=== PATIENT | female | born 1965 | race Hispanic/Latino ===

== ENCOUNTER 2024-09-07 18:54 | Emergency (ER) | payer SELFPAY ==
--- OUTSIDE RECORDS SUMMARY | 2024-09-07 18:57 | XMS REPORT | Continuity of Care Document ---
Author Name Unknown Address [address] [facility] [address] [place] [address] [facility] Address [address] [facility] [address] [place] [address] Care Team Providers Care Driver/Merchandiser Name Role Phone TAVO QUESADA Attending Clinician Unavailable TRICIA OSBORN Attending Clinician Unavailable LAB90 Attending Clinician Unavailable NUPUR POLANCO Attending Clinician Unavailable OMAR SANDS Attending Clinician Unavailable Payers Payer Name Policy Type Policy Number Effective Date Expirati on Date Source AETNA [facility] 94 [place] 9 [id number] 2023 00:00:00 AETNA [facility] 2 [id number] 2022 00:00:00 Social History Social Habit Start Date Stop Date Quantity Comments Source Gender identity Mahi Quintero - External Sexual orientation Bhavna Quintero - External Alcohol intake 2022-12-13 00:00:00 2022-12-13 00:00:00 Current drinker of alcohol (finding) Pema Quintero - External History of Social function 2022-10-21 00:00:00 2022-10-21 00:00:00 Pema Quintero - External Alcohol Comment 2022-10-21 00:00:00 2022-10-21 00:00:00 social Pema Quintero - External Sex Assigned At 1965 00:00:00 1965 00[birth year]:00 Pema Quintero - External Smoking Status Start Date Stop Date Source Never smoked tobacco Pema Quintero - External Medications Ordered Medication Name Filled Medication Name Start Date Stop Date Current Medication? Ordering Clinician Indication Dosage Frequency Signature (SIG) Comments Components Source Bilateral Injection: Methylpredn isolone Acetate (Depo-Medro l) 40 mg/ml, 40mg - Physician Veronica brown ([id number]) 12-13 21:30: 00 12-13 22:36 :00 No [id number] 40mg Pema wynne Gabapentin 100 MG oral Capsule 12-01 00:00: 00 Yes [id number] 100mg Take 1 capsule (100 mg total) by mouth 3 times daily Pema wynne Acetaminoph en-Codeine 300-30 MG oral Tablet 12-01 00:00: 00 Yes [id number] 1{tbl} Q4H Take 1 tablet by mouth every 4 hours as needed for pain Peam wynne methylPREDN ISolone 4 MG oral Tablet Therapy Pack 12-01 00:00: 00 Yes [id number] 1{severo} Take 1 severo by mouth See Admin Instructio ns Use as directed Pema wynne Diclofenac Sodium 75 MG oral Tablet Delayed Response 10-25 00:00: 00 Yes [id number] 75mg Take 1 tablet (75 mg total) by mouth 2 times daily Pema wynne Dexamethaso ne 2 MG oral Tablet 10-25 00:00: 00 12-01 00:00 :00 No [id number] 4mg Take 2 tablets (4 mg total) by mouth daily (with breakfast) Pema wynne Celecoxib (CeleBREX) 200 MG oral Capsule 10-21 00:00: 00 Yes [id number] 200mg Take 1 capsule (200 mg total) by mouth 2 times daily Pema wynne Vital Signs Vital Name Observation Time Observation Value Comments S kristin Body height 2022-12-13 19:56:00 154.9 cm Mahi ey Seybold - External Body weight 2022-12-13 19:56:00 72.576 kg Mahi ey Seybold - External BMI 2022-12-13 19:56:00 30.23 kg/m2 Mahi ey Seybold - External Systolic blood pressure 2022-12-01 21:09:00 124 mm[Hg] Pema Seybo ld - External Diastolic blood pressure 2022-12-01 21:09:00 62 mm[Hg] Pema Seybo ld - External Heart rate 2022-12-01 21:09:00 88 /min Kelse y Seybold - External Body temperature 2022-12-01 21:09:00 36.61 Maame Pema Seybold - External Respiratory rate 2022-12-01 21:09:00 15 /min Pema Seybold - External Body height 2022-12-01 21:09:00 154.9 cm Mahi ey Seybold - External Body weight 2022-12-01 21:09:00 72.757 kg Mahi ey Seybold - External BMI 2022-12-01 21:09:00 30.31 kg/m2 Mahi ey Seybold - External Oxygen saturation in Arterial blood by Pulse oximetry 2022-12-01 21:09:00 99 /min Pema Seybo ld - External Systolic blood pressure 2022-10-21 20:40:00 102 mm[Hg] Pema Seybo ld - External Diastolic blood pressure 2022-10-21 20:40:00 58 mm[Hg] Pema Hillybo ld - External Heart rate 2022-10-21 20:40:00 74 /min Pedrose y Seybold - External Body temperature 2022-10-21 20:40:00 36.72 Maame Pema Seybold - External Respiratory rate 2022-10-21 20:40:00 14 /min Pema Seybold - External Body height 2022-10-21 20:40:00 154.9 cm Mahi ey Seybold - External Body weight 2022-10-21 20:40:00 71.668 kg Mahi ey Seybold - External BMI 2022-10-21 20:40:00 29.85 kg/m2 Mahi ey Seybold - External Encounters Start Date/Time End Date/Time Encounter Type Admission Type Attending [facility] Care Department Encounter ID Source 2023-05-19 00:00:00 2023-05-19 00:00:00 [id number] 13:00:00 2023-04-08 13:00:00 Outpatient HUNDL, TAVO PEMA ALVAREZ [id number] [facility]23-03-20 00:00:00 2023-03-20 00:00:00 Outpatient HUNDL, TAVO ALVAREZ [id number] [facility] 2022-12-29 00:00:00 2022-12-29 00:00:00 Outpatient HUNDL, TAVO PEMA ALVARE[facility] [id number] [facility] 2022-12-13 14:50:00 2022-12-13 14:50:00 Outpatient IRENA, TRICIA ALVAREZ [id number] [facility] 2022-12-13 13:55:00 2022-12-13 13:55:00 Outpatient PEMA ALVARE[facility] [id number] [facility] 2022-12-13 00:00:00 2022-12-13 00:00:00 Outpatient IRENA, TRICIA ALVAREZ [id number] [facility] 2022-12-13 00:00:00 2022-12-13 00:00:00 Outpatient IRENA, TRICIA ALVAREZ [id number] [facility] 2022-12-01 17:15:00 2022-12-01 17:15:00 Outpatient TATIANNADianna PEMA ALVAREZ [id number] [facility] 2022-12-01 16:30:00 2022-12-01 16:30:00 Outpatient HUNDL, TAVO ALVAREZ [id number] [facility] 2022-11-26 00:00:00 2022-11-26 00:00:00 Outpatient HUNDL, TAVO ALVAREZ [id number] [facility] 2022-11-25 14:30:00 2022-11-25 14:30:00 Outpatient IRENA, TRICIA ALVAREZ [id number] [facility] 2022-10-25 00:00:00 2022-10-25 00:00:00 Outpatient HUNDL, TAVO ALVAREZ [id number] [facility] 2022-10-22 00:00:00 2022-10-22 00:00:00 Outpatient TAVO QUESADA [facility]EMA ALVARE[facility] [id number] [facility] 2022-10-21 16:30:00 2022-10-21 16:30:00 Outpatient TAVO QUESADA [facility] [id number] [facility] 2022-10-07 14:30:00 2022-10-07 14:30:00 Outpatient COLLINNUPUR PEMA ALVAREZ [id number] [facility] 2022-09-30 10:00:00 2022-09-30 10:00:00 Outpatient WICHO, OMAR PEMA ALVAREZ [id number] [facility] Notes Date/Time Note Provider Source 2022-12-13 14:57:31 Formatting of this n ote is different from the original. Chief Complaint Patient presents with Consultation C/o patient is here bilateral wrist pain, present couple of months, no hx of injury, patient stated pain depending on activity pain becoming constant, patient also stated dealing with some numbness in the fingers, occupation housekeeping, tx'd steriod pill and ibuprofen. LATASHA [facility]
[2024-09-07 20:21] LABS: Absolute Lymphocytes (CBC) 1.4 K/uL (0.7-4.9); Absolute Monocytes 1.7 K/uL (0.1-1.3); Absolute Neutrophil 12.3 K/uL (1.8-8.0); Basophils % 0.3 % (0-1.3); Hematocrit 35.2 % (36.0-45.0); Lymphocytes % 8.9 % (15.3-44.8); MCH 30.2 pg (27.0-35.0); MCHC 34.1 g/dL (32.0-36.0); MCV 88.7 fL (80-100); MPV 6.9 fL (7.6-11.3); Monocytes % 10.9 % (3.3-12.3); Neutrophils % 79.9 % (41.7-73.7); Platelets 243 thou/uL (152-406); RBC Red Blood Cell Count 3.97 M/uL (3.86-4.86); Red Cell Distribution Width 13.6 % (12.1-15.2)
[2024-09-07] MEDS ORDERED: KETOROLAC 30 MG/ML INJ ONE (20:25)
[2024-09-07] MEDS ORDERED: NA CHLORIDE 0.9% 1,000 ML ONE ×2 (20:25→22:15)
[2024-09-07 20:29] LABS: Urine Bilirubin NEGATIVE (Negative); Urine Blood 2+ (Negative); Urine Clarity Extremely Turbid (Clear); Urine Color Yellow (Yellow); Urine Culture Reflex Order REFLEXED; Urine Glucose NEGATIVE (Negative); Urine Ketones 1+ (Negative); Urine Microscopic Reflex YN ORDER UMIC; Urine Nitrite NEGATIVE (Negative); Urine Protein 1+ (Negative); Urine RBC >50 /HPF (None Seen); Urine Urobilinogen 1+ (Normal)
[2024-09-07 20:30] LABS: Sqamous Epithelial <5 /HPF (None Seen); Urine Bacteria <20 /HPF (<20); Urine Crystals Unidentified Few /HPF (None Seen); Urine Mucus Slight /HPF (None Seen)
[2024-09-07 20:43] LABS: SARS-CoV-2 Antigen Rapid Res Negative (Negative)
[2024-09-07 20:44] LABS: Albumin 3.3 g/dL (3.4-5.0); Albumin/Globulin Ratio 0.8 (1.1-1.8); Anion Gap 9.6 mEq/L (5.0-15.0); Bilirubin Total 0.7 mg/dL (0.2-1.0); Globulin 4.3 g/dL (2.3-3.5); Potassium 3.6 mEq/L (3.5-5.1); Protein, Total 7.6 g/dL (6.4-8.2)
[2024-09-07] MEDS ORDERED: IBUPROFEN 400 MG TAB ONE ×2 (21:39→21:43)
[2024-09-07] MEDS ORDERED: ACETAMINOPHEN 500 MG TAB ONE (21:43)
[2024-09-07] MEDS ORDERED: CEFTRIAXONE 1000 MG/VIAL ONE (22:08)
--- NOTE | 2024-09-08 00:18 | RAD REPORT ---
PROCEDURE: CT Chest, Abdomen and Pelvis With Intravenous Contrast CLINICAL INDICATION: The patient is 58 years old and is Female; abdominal pain, fever TECHNIQUE: Axial computed tomography images of the chest, abdomen and pelvis with intravenous contrast. Sagitt al and coronal reformatted images were created and reviewed. This CT exam was performed using one or more of the following dose reduction techniques: automated exposure control, adjustment of the m A and/or kV according to patient size, and/or use of iterative reconstruction technique. DLP: 855 mGy*cm COMPARISON: None. FINDINGS: CHEST: LUNGS AND PLEURAL SPACES: Interlobular septal thickening. Dependent subsegmental atelectasis. Bibas ilar scarring. No focal consolidation. No significant effusion. No pneumothorax. HEART: Unremarkable. No cardiomegaly. No significant pericardial effusion. No significant cor onary artery calcifications. ABDOMEN: LIVER: Hepatic steatosis. GALLBLADDER AND BILE DUCTS: Unremarkable. No calcified stones. No ductal dilation. PANCREAS: Unremarkable. No ductal dilation. No mass. SPLEEN: Unremarkable. No splenomegaly. ADRENALS: Unremarkable. No mass. KIDNEYS AND URETERS: Mild left hydronephrosis and proximal hydroureter with enlargement of the left kidney, delayed enhancement pattern as well as urothelial thickening/enhancement and perinephric/periureteral stranding. No obstructive stone. No solid mass. STOMACH AND BOWEL: Unremarkable. No obstruction. No mucosal thickening. PELVIS: APPENDIX: Diffuse thickening of the appendix measuring up to 8 mm, nonspecific. BLADDER: Unremarkable. No mass. REPRODUCTIVE: Unremarkable as visualized. CHEST, ABDOMEN and PELVIS: INTRAPERITONEAL SPACE: Unremarkable. No significant fluid collection. No free air. BONES/JOINTS: Unremarkable. No acute fracture. SOFT TISSUES: Unremarkable. VASCULATURE: Unremarkable. No aortic aneurysm. LYMPH NODES: Unremarkable. No enlarged lymph nodes. IMPRESSION: 1. Mild left hydronephrosis and proximal hydroureter with enlargement of the left kidney, delayed e nhancement pattern as well as urothelial thickening/enhancement and perinephric/periureteral stranding. No obstructive stone. Findings concerning for pyelonephritis. 2. No acute intrathoracic abnormality. 3. Hepatic steatosis. 4. Mild interstitial edema and chronic lung changes. Electronically signed by: Gaurav Jensen DO 09/07/2024 11:54 PM CDT RP 9 Due to temporary technical issues with the PACS/Powerscribe reporting system, reports are being phoebe d by the in-house radiologist without review as a courtesy to ensure prompt reporting the interpreting radiologist is fully responsible for the content of the report. Transcribed Date/Time: 09/08/2024 12:18 AM
--- NOTE | 2024-09-08 00:38 | EDPHYS ---
Physician Documentation [facility] Name: Beata Kim Age: 58 yrs Sex: Female : 1965 Arrival Date: 09/07/2024 Time: 18:54 Bed 9 Private MD: ED Physician Eldon Duvall HPI: 09/07 19:05 This 58 yrs old Female presents to ER via Unassigned with complaints of Flu ms3 Symptoms. 19:05 58-year-old female with no past medical history presents to the emergency department ms3 for fevers and chills that been ongoing for 3 days. Patient endorses headache, nausea, vomiting, diarrhea, dysuria, urinary frequency. Patient denies abdominal pain. Patient states she is taken [place] and Tylenol without relief.. Historical: - Allergies: 19:13 No Known Allergies; dd2 - PMHx: 19:13 None; dd2 - PSHx: 19:13 None; dd2 - Immunization history:: Adult Immunizations up to date. - Infectious Disease History:: Denies. - Social history:: Smoking status: Patient denies any tobacco usage or history of. - Family history:: not pertinent. ROS: 19:05 Cardiovascular: Negative for chest pain, and palpitations. ms3 19:05 MS/Extremity: Negative for injury and deformity, Skin: Negative for injury, rash, and discoloration, 19:05 Constitutional: Positive for body aches, chills, fever, 19:05 Abdomen/GI: Positive for nausea, vomiting, and diarrhea, Negative for abdominal pain, 19:05 : Positive for urinary frequency, burning with urination, 09/08 05:57 All other systems are negative, sp4 Exam: 09/07 19:05 Constitutional: This is a well developed, well nourished patient who is awake, alert, ms3 and in no acute distress. Cardiovascular: Regular rate and rhythm with a normal S1 and S2. No gallops, murmurs, or rubs. Normal PMI, no JVD. No pulse deficits. Respiratory: Lungs have equal breath sounds bilaterally, clear to auscultation and percussion. No rales, rhonchi or wheezes noted. No increased work of breathing, no retractions or nasal flaring. Abdomen/GI: Soft, non-tender, with normal bowel sounds. No distension or tympany. No guarding or rebound. No evidence of tenderness throughout. Skin: Warm, dry with normal turgor. Normal color with no rashes, no lesions, and no evidence of cellulitis. MS/ Extremity: Pulses equal, no cyanosis. Neurovascular intact. Full, normal range of motion. Back: CVA tenderness, that is mild, is noted on the left, 09/08 05:57 Constitutional: This is a well developed, well nourished patient who is awake, alert, sp4 and in no acute distress. Head/Face: Normocephalic, atraumatic. Eyes: Pupils equal round and reactive to light, extra-ocular motions intact. Lids and lashes normal. Conjunctiva and sclera are not injected. Cornea within normal limits. Periorbital areas with no swelling, redness, or edema. ENT: Nares patent. No nasal discharge, no septal abnormalities noted. Tympanic membranes are normal and external auditory canals are clear. Oropharynx with no redness, swelling, or masses, exudates, or evidence of obstruction, uvula midline. Mucous membranes moist. Neck: Trachea midline, no thyromegaly or masses palpated, and no cervical lymphadenopathy. Supple, full range of motion without nuchal rigidity, or vertebral point tenderness. Chest/axilla: Normal chest wall appearance and motion. Nontender with no deformity. No lesions are appreciated. Cardiovascular: Regular rate and rhythm with a normal S1 and S2. No gallops, murmurs, or rubs. Normal PMI, no JVD. No pulse deficits. Respiratory: Lungs have equal breath sounds bilaterally, clear to auscultation and percussion. No rales, rhonchi or wheezes noted. No increased work of breathing, no retractions or nasal flaring. Abdomen/GI: Soft, with normal bowel sounds. No distension or tympany. No guarding or rebound. No evidence of tenderness throughout. Back: No spinal tenderness. No costovertebral tenderness. Skin: Warm, dry with normal turgor. Normal color with no rashes, no lesions, and no evidence of cellulitis. MS/ Extremity: Pulses equal, no cyanosis. Neurovascular intact. Full, normal range of motion. Neuro: Awake and alert, GCS 15, oriented to person, place, time, and situation. Cranial nerves II-XII grossly intact. Motor strength 5/5 in all extremities. Sensory grossly intact. Psych: Awake, alert, with orientation to person, place and time. Behavior, mood, and affect are within normal limits Vital Signs: 09/07 19:11 BP 112 / 75; Pulse 106; Resp 16; Temp 99.3; Pulse Ox 98% ; Weight 72.57 kg; Height 5 dd2 ft. 1 in. ; Pain 7/10; 21:35 BP 107 / 64; Pulse 98; Resp 19 S; Temp 102.1; Pulse Ox 99% on R/A; ha1 22:40 BP 110 / 68; Pulse 94; Resp 16 S; Temp 99.1(O); Pulse Ox 99% on R/A; ha1 23:40 BP 117 / 69; Pulse 91; Resp 18 S; Pulse Ox 99% on R/A; ha1 09/08 01:03 BP 113 / 69; Pulse 91; Resp 18 S; Temp 98.1; Pulse Ox 99% on R/A; ha1 09/07 19:11 Body Mass Index 30.23 (72.57 kg, 154.94 cm) dd2 09/07 19:11 Pain Scale: Adult dd2 [place] Coma Score: 05:57 Eye Response: spontaneous(4). Motor Response: obeys commands(6). Verbal Response: sp4 oriented(5). Total: 15. MDM: 09/07 19:00 Medical Screening Exam initiated ms3 19:05 Differential Diagnosis COVID vs UTI vs Dehydration. ms3 09/08 00:36 ED course: DLP: 855 mGy*cm COMPARISON: None. FINDINGS: CHEST: LUNGS AND PLEURAL SPACES: sp4 Interlobular septal thickening. Dependent subsegmental atelectasis. Bibasilar scarring. No focal consolidation. No significant effusion. No pneumothorax. HEART: Unremarkable. No cardiomegaly. No significant pericardial effusion. No significant coronary artery calcifications. ABDOMEN: LIVER: Hepatic steatosis. GALLBLADDER AND BILE DUCTS: Unremarkable. No calcified stones. No ductal dilation. PANCREAS: Unremarkable. No ductal dilation. No mass. SPLEEN: Unremarkable. No splenomegaly. ADRENALS: Unremarkable. No mass. KIDNEYS AND URETERS: Mild left hydronephrosis and proximal hydroureter with enlargement of the left kidney, delayed enhancement pattern as well as urothelial thickening/enhancement and perinephric/periureteral stranding. No obstructive stone. No solid mass. STOMACH AND BOWEL: Unremarkable. No obstruction. No mucosal thickening. PELVIS: APPENDIX: Diffuse thickening of the appendix measuring up to 8 mm, nonspecific. BLADDER: Unremarkable. No mass. REPRODUCTIVE: Unremarkable as visualized. CHEST, ABDOMEN and PELVIS: INTRAPERITONEAL SPACE: Unremarkable. No significant fluid collection. No free air. BONES/JOINTS: Unremarkable. No acute fracture. SOFT TISSUES: Unremarkable. VASCULATURE: Unremarkable. No aortic aneurysm. LYMPH NODES: Unremarkable. No enlarged lymph nodes. IMPRESSION: 1. Mild left hydronephrosis and proximal hydroureter with enlargement of the left kidney, delayed enhancement pattern as well as urothelial thickening/enhancement and perinephric/periureteral stranding. No obstructive stone. Findings concerning for pyelonephritis. 2. No acute intrathoracic abnormality. 3. Hepatic steatosis. 4. Mild interstitial edema and chronic lung changes. . 05:58 Data reviewed: vital signs, nurses notes, lab test result(s), radiologic studies, CT sp4 scan. Consideration of Admission/Observation Escalation of care including admission/observation considered. ED course: CT reveals signs of left-sided pyelonephritis. Patient will be treated with cephalexin for the next 10 days.. 09/07 19:09 Order name: CBC with Diff; Complete Time: 21:40 ms3 09/07 19:09 Order name: CMP; Complete Time: 21:40 ms3 09/07 19:09 Order name: SARS RAPID; Complete Time: 21:40 ms3 09/07 19:09 Order name: UA Rfx Arnoldo Cult if indicated; Complete Time: 21:40 ms3 09/07 20:59 Order name: Urine Culture EDME 09/07 22:13 Order name: CT Chest, Abdomen, Pelvis - W/Contrast sp4 Administered Medications: 09/07 20:31 Drug: NS 0.9% IV 1000 ml IV at 1000 ml once; to be given as a bolus over 60 minutes cp4 Route: IV; Rate: 1000 ml; Site: right antecubital; 22:35 Follow up: Response: No adverse reaction; IV Status: Completed infusion ha1 20:31 Drug: Ketorolac IVP 10 mg 10 mg IVP once Route: IVP; Site: right antecubital; cp4 21:00 Follow up: Response: No adverse reaction; Marked relief of symptoms; Pain is decreased ha1 21:40 Drug: Acetaminophen PO 1000 mg PO once Route: PO; ha1 22:40 Follow up: Response: No adverse reaction; Temperature is decreased ha1 21:40 Drug: Ibuprofen PO 800 mg PO once Route: PO; ha1 22:40 Follow up: Response: No adverse reaction; Marked relief of symptoms; Temperature is ha1 decreased 22:16 Drug: Rocephin - Rocephin (cefTRIAXone) IVPB 1 grams IVPB once over 30 mins; (mix in 50 ha1 mL NS) Route: IVPB; Infused Over: 30 mins; Site: right antecubital; 22:35 Follow up: Response: No adverse reaction; IV Status: Completed infusion ha1 22:25 Drug: NS 0.9% IV 1000 ml IV at 1 bolus Per protocol; to be given as a bolus over 60 ha1 minutes Route: IV; Rate: 1 bolus; Site: right antecubital; Disposition: 09/08 05:59 Chart complete. sp4 Disposition Summary: 09/08/24 00:37 Discharge Ordered Notes: Location: Home sp4 Problem: new sp4 Symptoms: have improved sp4 Condition: Stable sp4 Diagnosis - Pyelonephritis acute sp4 - Acute febrile illness sp4 Followup: sp4 - With: Private Physician - When: 7 - 10 days - Reason: Recheck today's complaints Discharge Instructions: - Discharge Summary Sheet sp4 - Pyelonephritis, Adult, [id number] sp4 Forms: - Work release form sp4 - Patient Portal Instructions sp4 Prescriptions: - Cephalexin 500 mg Oral Capsule - take 1 capsule ORAL route every 12 hours for 10 days; 20 capsule; Refills: 0, sp4 Product Selection Permitted - Ibuprofen 800 mg Oral Tablet - take 1 tablet ORAL route every 8 hours As needed take with food; 30 tablet; sp4 Refills: 0, Product Selection Permitted - ondansetron 8 mg Oral Tablet,disintegrating - take 1 tablet ORAL route every 8 hours PRN nausea; 30 tablet; Refills: 0, sp4 Product Selection Permitted Signatures: Dispatcher [employer] EDMoustapha Burdick DO DO ms3 Sanjuana Muller RN RN ha1 Eldon Duvall MD MD sp4 Crystal Trejo 4 CHEIKH CASTILLO RN RN dd2 Corrections: (The following items were deleted from the chart) 09/07 18: 19:09 CBC+H.LAB.BRZ ordered. EDMS EDMS 19:09 COMPREHENSIVE METABOLIC PANEL+C.LAB.BRZ ordered. EDMS EDMS 19: SARS-COV-2 Antigen Rapid+I.LAB.BRZ ordered. EDMS EDMS 19: UA Rfx Arnoldo Cult if indicated+U.LAB.BRZ ordered. EDMS EDMS
--- NOTE | 2024-09-08 00:38 | ER ---
Nurse's Notes [facility] Name: Beata Kim Age: 58 yrs Sex: Female : 1965 Arrival Date: 09/07/2024 Time: 18:54 Bed 9 Private MD: Diagnosis: Pyelonephritis acute;Acute febrile illness Presentation: 09/07 19:11 Chief complaint: Patient states: FEVER AND CHILLS, PAIN TO RT SIDE OF HEAD, LOWER BACK dd2 PAIN, NAUSEA AND HOT URINE. X3 DAYS. Coronavirus screen: At this time, the client does not indicate any symptoms associated with coronavirus-19. Ebola Screen: No symptoms or risks identified at this time. Initial Sepsis Screen: Does the patient meet any 2 criteria? No. Patient's initial sepsis screen is negative. Does the patient have a suspected source of infection? No. Patient's initial sepsis screen is negative. Risk Assessment: Do you want to hurt yourself or someone else? Patient reports no desire to harm self or others. Onset of symptoms was September 04, 2024. 19:11 Method Of Arrival: Ambulatory dd2 19:11 Acuity: LILY 3 dd2 Triage Assessment: 19:13 General: Appears in no apparent distress. uncomfortable, Behavior is calm, cooperative, dd2 appropriate for age. Pain: Complains of pain in forehead, right catholic and low back area. Historical: - Allergies: 19:13 No Known Allergies; dd2 - PMHx: 19:13 None; dd2 - PSHx: 19:13 None; dd2 - Immunization history:: Adult Immunizations up to date. - Infectious Disease History:: Denies. - Social history:: Smoking status: Patient denies any tobacco usage or history of. - Family history:: not pertinent. Screenin:18 [facility] ED Fall Risk Assessment (Adult) History of falling in the last 3 months, cp4 including since admission No falls in past 3 months (0 pts) Confusion or Disorientation No (0 pts) Intoxicated or Sedated No (0 pts) Impaired Gait No (0 pts) Mobility Assist Device Used No (0 pt) Altered Elimination No (0 pt) Score/Fall Risk Level 0 - 2 = Low Risk Oriented to surroundings, Maintained a safe environment, Assessed \\T\\ reinforced patient's understanding of fall precautions, Hourly rounding (assess needs \\T\\ fall precautionary measures) done. Abuse screen: Denies threats or abuse. Denies injuries from another. Nutritional screening: No deficits noted. Tuberculosis screening: No symptoms or risk factors identified. Never had TB. Assessment: 20:18 General: Appears in no apparent distress. uncomfortable, Behavior is calm, cooperative, cp4 appropriate for age. Pain: Complains of pain in back and face and low back area and right catholic and forehead Pain does not radiate. Neuro: Level of Consciousness is awake, alert, obeys commands, Oriented to person, place, time, situation. Cardiovascular: Patient's skin is warm and dry. Respiratory: Airway is patent Respiratory effort is even, unlabored. GI: Abdomen is round non-distended, Bowel sounds present X 4 quads. Abd is soft and non tender X 4 quads. Reports nausea. : Reports "hot urine". EENT: No signs and/or symptoms were reported regarding the EENT system. Derm: No signs and/or symptoms reported regarding the dermatologic system. Musculoskeletal: No signs and/or symptoms reported regarding the musculoskeletal system. 21:35 Reassessment: Patient and/or family updated on plan of care and expected duration. Pain ha1 level reassessed. Patient is alert, oriented x 3, equal unlabored respirations, skin warm/dry/pink. PATIENT REPORTS FEELING COLD. TEMPERATURE AT 102.[address] DUVALL. 22:10 Reassessment: Patient and/or family updated on plan of care and expected duration. Pain ha1 level reassessed. Patient is alert, oriented x 3, equal unlabored respirations, skin warm/dry/pink. 23:20 Reassessment: Patient and/or family updated on plan of care and expected duration. Pain ha1 level reassessed. Patient is alert, oriented x 3, equal unlabored respirations, skin warm/dry/pink. 09/08 01:03 Reassessment: Patient and/or family updated on plan of care and expected duration. Pain ha1 level reassessed. Patient is alert, oriented x 3, equal unlabored respirations, skin warm/dry/pink. Patient states feeling better. Patient states symptoms have improved. Vital Signs: 09/07 19:11 BP 112 / 75; Pulse 106; Resp 16; Temp 99.3; Pulse Ox 98% ; Weight 72.57 kg; Height 5 dd2 ft. 1 in. ; Pain 7/10; 21:35 BP 107 / 64; Pulse 98; Resp 19 S; Temp 102.1; Pulse Ox 99% on R/A; ha1 22:40 BP 110 / 68; Pulse 94; Resp 16 S; Temp 99.1(O); Pulse Ox 99% on R/A; ha1 23:40 BP 117 / 69; Pulse 91; Resp 18 S; Pulse Ox 99% on R/A; ha1 09/08 01:03 BP 113 / 69; Pulse 91; Resp 18 S; Temp 98.1; Pulse Ox 99% on R/A; ha1 09/07 19:11 Body Mass Index 30.23 (72.57 kg, 154.94 cm) dd2 09/07 19:11 Pain Scale: Adult dd2 Leeds Coma Score: 05:57 Eye Response: spontaneous(4). Motor Response: obeys commands(6). Verbal Response: sp4 oriented(5). Total: 15. ED Course: 09/07 18:57 Patient arrived in ED. im 18:59 Renea Barker PA-C is PHCP. sb4 18:59 Moustapha Landa DO is Attending Physician. sb4 19:13 Triage completed. dd2 19:13 Arm band placed on right wrist. dd2 20:06 Crystal Trejo is Primary Nurse. cp4 20:06 Attending Physician role handed off by Moustapha Landa DO sp4 20:06 Eldon Duvall MD is Attending Physician. sp4 20:17 No provider procedures requiring assistance completed. Inserted saline lock: 22 gauge cp4 in right antecubital area, using aseptic technique. Blood collected. Flushed with 10 mL NS. 20:18 Bed in low position. Call light in reach. Side rails up X 1. cp4 23:12 CT Chest, Abdomen, Pelvis - W/Contrast In Process Unspecified. EDMS 09/08 01:07 Provided Education on: FOLLOW UPS . ha1 01:07 IV discontinued, intact, bleeding controlled, No redness/swelling at site. Pressure ha1 dressing applied. Administered Medications: 09/07 20:31 Drug: NS 0.9% IV 1000 ml IV at 1000 ml once; to be given as a bolus over 60 minutes cp4 Route: IV; Rate: 1000 ml; Site: right antecubital; 22:35 Follow up: Response: No adverse reaction; IV Status: Completed infusion ha1 20:31 Drug: Ketorolac IVP 10 mg 10 mg IVP once Route: IVP; Site: right antecubital; cp4 21:00 Follow up: Response: No adverse reaction; Marked relief of symptoms; Pain is decreased ha1 21:40 Drug: Acetaminophen PO 1000 mg PO once Route: PO; ha1 22:40 Follow up: Response: No adverse reaction; Temperature is decreased ha1 21:40 Drug: Ibuprofen PO 800 mg PO once Route: PO; ha1 22:40 Follow up: Response: No adverse reaction; Marked relief of symptoms; Temperature is ha1 decreased 22:16 Drug: Rocephin - Rocephin (cefTRIAXone) IVPB 1 grams IVPB once over 30 mins; (mix in 50 ha1 mL NS) Route: IVPB; Infused Over: 30 mins; Site: right antecubital; 22:35 Follow up: Response: No adverse reaction; IV Status: Completed infusion ha1 22:25 Drug: NS 0.9% IV 1000 ml IV at 1 bolus Per protocol; to be given as a bolus over 60 ha1 minutes Route: IV; Rate: 1 bolus; Site: right antecubital; Medication: 20:18 VIS not applicable for this client. cp4 Outcome: 09/08 00:37 Discharge ordered by . sp4 01:05 Discharged to home ambulatory, with family, ha1 01:05 Condition: stable 01:05 Discharge instructions given to patient, Instructed on discharge instructions, follow up and referral plans. medication usage, Demonstrated understanding of instructions, follow-up care, medications, Prescriptions given X 3, 01:08 Patient left the ED. ha1 Signatures: Dispatcher [employer] EDMS Sanjuana Muller RN RN ha1 Renea Barker, PAJaylanC PAJaylanC [email or web address] Eldon Duvall MD MD sp4 Greta Bolden Christina cp4 CHEIKH CASTILLO RN RN dd2
[2024-09-08 01:41] VITALS: O2SAT 99
[2024-09-08 01:45] VITALS: BP 113/69; TEMP 98.1
== END 2024-09-08 01:08 | disposition home or self-care (01) ==
LOC: ER 18:54
DX: N10 Acute pyelonephritis (principal); Z11.52 Encounter for screening for COVID-19
CPT/HCPCS: 36415; 71260; 74177; 80053; 81001; 85025; 87086; 87088; 87426; 96361; 96365; 96375; 99284; J0696; J7030; Q9967

== ENCOUNTER 2024-09-08 17:12 | Emergency (ER) | payer SELFPAY ==
--- OUTSIDE RECORDS SUMMARY | 2024-09-08 17:14 | XMS REPORT | Continuity of Care Document ---
Author Name Unknown Address [address] [place] [address] [facility] Address [address] [place] [address] Care Team Providers Care Configuration Consultant Name Role Phone TAVO QUESADA Attending Clinician Unavailable TRICIA OSBORN Attending Clinician Unavailable LAB90 Attending Clinician Unavailable NUPUR POLANCO Attending Clinician Unavailable OMAR SANDS Attending Clinician Unavailable Payers Payer Name Policy Type Policy Number Effective Date Expirati on Date Source AETNA [facility] 94 ON 9 [id number] 2023 00:00:00 AETNA [facility] [id number] 2022 00:00:00 Social History Social Habit Start [...] 12-13 21:30: 00 12-13 22:36 :00 No [id number] 40mg Pema wynne Gabapentin 100 MG oral Capsule 12-01 00:00: 00 Yes [id number] 450000 100mg Take 1 capsule (100 mg total) by mouth 3 times daily Pema wynne Acetaminoph en-Codeine 300-30 MG oral Tablet 12-01 00:00: 00 Yes [id number] 1{tbl} Q4H Take 1 tablet by mouth every 4 hours as needed for pain Pema wynne methylPREDN ISolone 4 MG oral Tablet Therapy Pack 12-01 00:00: 00 Yes [id number] 1{severo} Take 1 severo by mouth See Admin Instructio ns Use as directed Pema wynne Diclofenac Sodium 75 MG oral Tablet Delayed Response 10-25 00:00: 00 Yes [id number] 75mg Take 1 tablet (75 mg total) by mouth 2 times daily Pema wynne Dexamethaso ne 2 MG oral Tablet 10-25 00:00: 00 12-01 00:00 :00 No [id number] 4mg Take 2 tablets (4 mg total) by mouth daily (with breakfast) Pema wynne Celecoxib (CeleBREX) 200 MG oral Capsule 10-21 00:00: 00 Yes [id number] 200mg Take 1 capsule (200 mg total) [...] blood pressure 2022-10-21 20:40:00 58 mm[Hg] Pema Seybo ld - External Heart rate 2022-10-21 20:40:00 [...] End Date/Time Encounter Type Admission Type Attending [facility] Care Department Encounter ID Source 2023-05-19 00:00:00 2023-05-19 00:00:00 Outpatient TAVO QUESADA [id number] Pema Quintero 2023-04-08 13:00:00 2023-04-08 13:00:00 Outpatient HUNDL, TAVO PEMA ALVAREZ [id number] [facility] 2023-03-20 00:00:00 2023-03-20 00:00:00 Outpatient HUNDL, TAVO ALVAREZ [id number] [facility] 2022-12-29 00:00:00 2022-12-29 00:00:00 Outpatient HUNDL, TAVO ALVAREZ [id number] [facility] 2022-12-13 14:50:00 2022-12-13 14:50:00 Outpatient IRENA, TRICIA ALVAREZ [id number] [facility] 2022-12-13 13:55:00 2022-12-13 13:55:00 Outpatient PEMA ALVAREZ [id number] [facility] 2022-12-13 00:00:00 2022-12-13 00:00:00 Outpatient IRENA, TRICIA ALVAREZ [id number] [facility] 2022-12-13 00:00:00 2022-12-13 00:00:00 Outpatient IRENA, TRICIA ALVAREZ [id number] [facility] 2022-12-01 17:15:00 2022-12-01 17:15:00 Outpatient LAB90 PEMA ALVAREZ [id number] [facility] 2022-12-01 16:30:00 2022-12-01 16:30:00 Outpatient HUNDL, TAVO ALVAREZ [id number] [facility] 2022-11-26 00:00:00 2022-11-26 00:00:00 Outpatient HUNDL, TAVO ALVAREZ [id number] [facility] 2022-11-25 14:30:00 2022-11-25 14:30:00 Outpatient IRENA, TRICIA ALVAREZ [id number] [facility] 2022-10-25 00:00:00 2022-10-25 00:00:00 Outpatient HUNDL[facility] [id number] [facility] 20[facility]-10-22 00:00:00 2022-10-22 00:00:00 Outpatient SANGITA TAVO ALVAREZ [id number] Pema lisa 2022-10-21 16:30:00 2022-10-21 16:30:00 Outpatient SANGITATAVO PEMA ALVAREZ [id number] P[facility] Quintero 2022-10-07 14:30:00 2022-10-07 14:30:00 Outpatient COLLINNUPUR PEMA ALVAREZ [id number] [facility] 2022-09-30 10:00:00 2022-09-30 10:00:00 Outpatient OMAR SANDS [id number] [facility] Notes Date/Time Note Provider Source 2022-12-13 [...] tx'd steriod pill and ibuprofen. LATASHA [facility]
--- NOTE | 2024-09-08 18:53 | RAD REPORT ---
EXAMINATION: Head Brain Wo Cont CLINICAL INDICATION: Female, 58 years old.HEADACHE TECHNIQUE: Axial CT images from the skull base to the vertex without intravenous contrast. Coronal an d sagittal reformatted images were created from the data set. One or more of the following dose reduction techniques were used: Automated exposure control, adjustment of the mA and/or kV according to patient size, and/or iterative reconstruction. Unless otherwise specified, incidental findings do not require dedicated imaging follow-up. [id number]. COMPARISON: No prior exam. FINDINGS: INTRACRANIAL: No acute intracranial hemorrhage. No hydrocephalus. No mass effect or midline shift. No significant white matter disease. VASCULATURE: No visualized abnormalities in the arteries or dural venous sinuses. Partially empty rhonda la, typically normal variant. SCALP/SKULL: No calvarial fracture identified. No acute soft tissue abnormality. SINUSES: Scattered areas of paranasal sinus thickening. No significant mastoid fluid. IMPRESSION: No acute intracranial abnormality.
[2024-09-08] MEDS ORDERED: ACETAMINOPHEN 500 MG TAB ONE (19:27)
[2024-09-08] MEDS ORDERED: METOCLOPRAMIDE 10 MG/2mL INJ ONE (19:27)
[2024-09-08] MEDS ORDERED: DIPHENHYDRAMINE 50 MG/ML VIAL ONE (19:27)
[2024-09-08] MEDS ORDERED: NA CHLORIDE 0.9% 1,000 ML ONE (19:28)
--- NOTE | 2024-09-08 20:04 | EDPHYS ---
Physician Documentation [facility] Name: Beata Kim Age: 58 yrs Sex: Female : 1965 Arrival Date: 09/08/2024 Time: 17:12 Bed 9 Private MD: ED Physician Del Gonzalez HPI: 09/08 19:15 This 58 yrs old Female presents to ER via Ambulatory with complaints of sb4 Headache, Fever. 19:15 Patient is complaining of a right sided headache that is throbbing in nature. States sb4 she was seen here yesterday for fever and chills. Was diagnosed with pyelonephritis, discharged with antibiotics and anti-inflammatories. States her fever has persisted and her head is hurting a lot. Has been taking all medications as prescribed. Historical: - Allergies: 18:10 No Known Allergies; me1 - PMHx: 18:10 None; me1 - PSHx: 18:10 Total abdominal hysterectomy; me1 - Immunization history:: Adult Immunizations up to date. - Infectious Disease History:: Denies. - Social history:: Smoking status: Patient denies any tobacco usage or history of. ROS: 19:15 Cardiovascular: Negative for chest pain, palpitations, and edema, sb4 19:15 Constitutional: Positive for fever, 19:15 Neuro: Positive for headache, 19:15 All other systems are negative, Exam: 19:17 Head/Face: Normocephalic, atraumatic. Eyes: Extra-ocular motions intact. Periorbital sb4 areas with no swelling, redness, or edema. ENT: Mucous membranes moist. Cardiovascular: Regular rate and rhythm with a normal S1 and S2. Respiratory: No increased work of breathing, no retractions or nasal flaring. Abdomen/GI: Soft, non-tender, no distension. Skin: Warm, dry with normal turgor. Normal color with no rashes, no lesions, and no evidence of cellulitis. 19:17 Constitutional: The patient appears alert, awake, uncomfortable, Vital Signs: 18:06 BP 100 / 59; Pulse 88; Resp 15; Temp 99; Pulse Ox 97% ; Weight 72.57 kg; Height 5 ft. 1 me1 in. ; Pain 10/10; 20:00 BP 105 / 62; Pulse 84; Resp 14; Temp 98.1; Pulse Ox 98% ; me1 18:06 Body Mass Index 30.23 (72.57 kg, 154.94 cm) me1 18:06 Pain Scale: Adult me1 Hernandez Coma Score: 20:03 Eye Response: spontaneous(4). Motor Response: obeys commands(6). Verbal Response: sb4 oriented(5). Total: 15. MDM: 18:01 Medical Screening Exam initiated sb4 20:03 Data reviewed: vital signs, nurses notes, radiologic studies, and as a result, I will sb4 discharge patient. Counseling: I had a detailed discussion with the patient and/or guardian regarding the historical points, exam findings, and any diagnostic results supporting the discharge/admit diagnosis, radiology results, the need for outpatient follow up, for definitive care, to return to the emergency department if symptoms worsen or persist or if there are any questions or concerns that arise at home. 09/08 18:16 Order name: Head Brain Wo Cont CT; Complete Time: 18:54 sb4 Administered Medications: 19:30 Drug: Acetaminophen PO 1000 mg PO once Route: PO; me1 20:31 Follow up: Response: No adverse reaction; Pain is decreased me1 19:39 Drug: NS 0.9% IV 1000 ml IV at 1 bolus Per protocol; to be given as a bolus over 60 me1 minutes Route: IV; Rate: 1 bolus; Site: right antecubital; 20:32 Follow up: Response: No adverse reaction; IV Status: Completed infusion; IV Intake: me1 1000ml 19:39 Drug: metoCLOPramide IVP 10 mg IVP once; over 1 to 2 minutes Route: IVP; Site: right me1 antecubital; 20:32 Follow up: Response: No adverse reaction; Pain is decreased me1 19:39 Drug: diphenhydrAMINE IVP 25 mg IVP once Route: IVP; Site: right antecubital; me1 20:32 Follow up: Response: No adverse reaction; Pain is decreased me1 Disposition Summary: 09/08/24 20:03 Discharge Ordered Notes: Location: Home sb4 Problem: new sb4 Symptoms: have improved sb4 Condition: Stable sb4 Diagnosis - Headache sb4 Followup: sb4 - With: Private Physician - When: 1 week - Reason: Recheck today's complaints, Re-evaluation by your physician Discharge Instructions: - Discharge Summary Sheet sb4 - Fever, Adult sb4 - Migraine Headache, [id number] sb4 Forms: - Patient Portal Instructions sb4 - Leadership Thank You Letter sb4 Addendum: 09/10/2024 19:19 Co-signature as Attending Physician, Del Gonzalez MD I agree with the assessment and c samuel plan of care. Signatures: Dispatcher [employer] EDMS Del Gonzalez MD MD cha Brown, Sophia, PA-C PA-C sb4 Perla Ramírez RN RN me1 Corrections: (The following items were deleted from the chart) 09/08 18:16 18:16 Head Brain Wo Cont+CT.RAD.BRZ ordered. EDVA EDVA
--- NOTE | 2024-09-08 20:04 | ER ---
Nurse's Notes [facility] Name: Beata Kim Age: 58 yrs Sex: Female : 1965 Arrival Date: 09/08/2024 Time: 17:12 Bed 9 Private MD: Diagnosis: Headache Presentation: 09/08 18:06 Chief complaint: Patient states: she was seen here yesterday for the same thing. c/o KILPATRICK me1 to right side of face and head with fever. States she is taking the medication that was prescribed with no relief. Pain 10/10 "throbbing". Coronavirus screen: Vaccine status: Patient reports receiving the 2nd dose of the covid vaccine. Ebola Screen: No symptoms or risks identified at this time. Initial Sepsis Screen: Does the patient meet any 2 criteria? No. Patient's initial sepsis screen is negative. Does the patient have a suspected source of infection? No. Patient's initial sepsis screen is negative. Risk Assessment: Do you want to hurt yourself or someone else? Patient reports no desire to harm self or others. Onset of symptoms is unknown. 18:06 Method Of Arrival: Ambulatory pr1 18:06 Acuity: LILY 4 me1 Triage Assessment: 18:10 Headache History: The patient has had previous headaches and this one is similar to me1 previous episodes. 20:31 General: Appears uncomfortable, Behavior is calm, cooperative, appropriate for age. me1 Pain: Complains of pain in head. Historical: - Allergies: 18:10 No Known Allergies; me1 - PMHx: 18:10 None; me1 - PSHx: 18:10 Total abdominal hysterectomy; me1 - Immunization history:: Adult Immunizations up to date. - Infectious Disease History:: Denies. - Social history:: Smoking status: Patient denies any tobacco usage or history of. Screenin:00 [facility] ED Fall Risk Assessment (Adult) History of falling in the last 3 months, me1 including since admission No falls in past 3 months (0 pts) Confusion or Disorientation No (0 pts) Intoxicated or Sedated No (0 pts) Impaired Gait No (0 pts) Mobility Assist Device Used No (0 pt) Altered Elimination No (0 pt) Score/Fall Risk Level 0 - 2 = Low Risk Maintained a safe environment, Provided non-skid footwear, Hourly rounding (assess needs \\T\\ fall precautionary measures) done. Abuse screen: Denies threats or abuse. Nutritional screening: No deficits noted. Tuberculosis screening: No symptoms or risk factors identified. Assessment: 19:00 General: Appears uncomfortable, ill, well groomed, well developed, well nourished, me1 Behavior is calm, cooperative, appropriate for age, Reports she was seen here yesterday for the same thing. c/o KILPATRICK to right side of face and head with fever. States she is taking the medication that was prescribed with no relief. Pain 10/10 "throbbing". Pain: Complains of pain in head Pain does not radiate. Pain currently is 10 out of 10 on a pain scale. Quality of pain is described as throbbing, Pain began gradually, Is continuous. Neuro: Level of Consciousness is awake, alert, obeys commands, Oriented to person, place, time, situation, Appropriate for age. Cardiovascular: Patient's skin is warm and dry. Respiratory: Airway is patent Respiratory effort is even, unlabored, Respiratory pattern is regular, symmetrical. GI: No signs and/or symptoms were reported involving the gastrointestinal system. : No signs and/or symptoms were reported regarding the genitourinary system. EENT: No signs and/or symptoms were reported regarding the EENT system. Derm: Skin is intact, is healthy with good turgor, Skin is pink, warm \\T\\ dry. Skin temperature is warm. Musculoskeletal: No signs and/or symptoms reported regarding the musculoskeletal system. Vital Signs: 18:06 BP 100 / 59; Pulse 88; Resp 15; Temp 99; Pulse Ox 97% ; Weight 72.57 kg; Height 5 ft. 1 me1 in. ; Pain 10/10; 20:00 BP 105 / 62; Pulse 84; Resp 14; Temp 98.1; Pulse Ox 98% ; me1 18:06 Body Mass Index 30.23 (72.57 kg, 154.94 cm) me1 18:06 Pain Scale: Adult me1 Windy Coma Score: 20:03 Eye Response: spontaneous(4). Motor Response: obeys commands(6). Verbal Response: sb4 oriented(5). Total: 15. ED Course: 17:14 Patient arrived in ED. im 17:56 Renea Barker PA-C is PHCP. sb4 17:56 Del Gonzalez MD is Attending Physician. sb4 18:10 Triage completed. me1 18:10 Arm band placed on Patient placed in waiting room. me1 18:45 Head Brain Wo Cont CT In Process Unspecified. EDMS 19:00 Patient has correct armband on for positive identification. Bed in low position. Call me1 light in reach. Side rails up X2. Provided Education on: POC. Verbalized understanding.. 19:00 No provider procedures requiring assistance completed. me1 19:25 Perla Ramírez, RN is Primary Nurse. me1 19:38 Inserted saline lock: 22 gauge in right antecubital area, using aseptic technique. me1 20:31 IV discontinued, intact, bleeding controlled, No redness/swelling at site. Pressure me1 dressing applied. Administered Medications: 19:30 Drug: Acetaminophen PO 1000 mg PO once Route: PO; me1 20:31 Follow up: Response: No adverse reaction; Pain is decreased me1 19:39 Drug: NS 0.9% IV 1000 ml IV at 1 bolus Per protocol; to be given as a bolus over 60 me1 minutes Route: IV; Rate: 1 bolus; Site: right antecubital; 20:32 Follow up: Response: No adverse reaction; IV Status: Completed infusion; IV Intake: me1 1000ml 19:39 Drug: metoCLOPramide IVP 10 mg IVP once; over 1 to 2 minutes Route: IVP; Site: right me1 antecubital; 20:32 Follow up: Response: No adverse reaction; Pain is decreased me1 19:39 Drug: diphenhydrAMINE IVP 25 mg IVP once Route: IVP; Site: right antecubital; me1 20:32 Follow up: Response: No adverse reaction; Pain is decreased me1 Medication: 19:00 VIS not applicable for this client. me1 Intake: 20:32 IV: 1000ml; Total: 1000ml. me1 Outcome: 20:03 Discharge ordered by . sb4 20:27 Discharged to home ambulatory, jb4 20:27 Condition: stable 20:27 Discharge instructions given to patient, Instructed on discharge instructions, follow up and referral plans. Demonstrated understanding of instructions, follow-up care, 20:27 Patient left the ED. jb4 Signatures: Dispatcher [facility] Duane Beasley RN RN jb4 Renea Barker PA-C PAJocelynn sb4 Greta Bolden Michelle, RN RN me1 Corrections: (The following items were deleted from the chart) 20:28 18:06 Chief complaint: Patient states: she was seen here yesterday for the same thing. me1 c/o KILPATRICK to right side of face and head with fever. States she is taking the medication that was prescribed with no relief. Pain 01/25 "throbbing". me1
[2024-09-08 20:44] VITALS: BP 100/59; TEMP 99; O2SAT 97
== END 2024-09-08 20:27 | disposition home or self-care (01) ==
LOC: ER 17:12
DX: R51.9 Headache, unspecified (principal); R50.9 Fever, unspecified
CPT/HCPCS: 70450; 96361; 96374; 96375; 99284; J1200; J2765; J7030